=== PATIENT | male | born 1950 | race Caucasian/White ===

== ENCOUNTER 2023-05-16 08:04 | Outpatient (RCR) | payer MEDICARE, SELFPAY ==
--- NOTE | ~2023-05-16 | XR_ITS ---
EXAMINATION: XR FOOT, LEFT CLINICAL INFORMATION: Nonhealing wound left foot COMPARISON: None available. TECHNIQUE: AP, lateral, and oblique views of the left foot. FINDINGS: No acute fracture or dislocation. There is focal osteopenia and bone loss of the distal tuft of the great toe. There is adjacent soft tissue swelling and overlying surgical dressing. Appearance is concerning for osteomyelitis. There is irregular appearance to the medial side of the MTP joint of the fifth toe with focal osteopenia and cystic or erosive change of the fifth metatarsal head and periosteal and cortical thickening of the proximal phalanx. Appearance is questionable for septic arthritis. Question old trauma to the proximal phalanx of the fifth toe. There may be soft tissue swelling adjacent to the fifth MTP joint. No soft tissue foreign body. Calcaneal spurs. XR/XR foot LT min 3V IMPRESSION: Osteomyelitis of the distal tuft of the great toe. Question septic arthritis of the medial side of the fifth MTP joint. Findings will be communicated by the [place] work flow english professor.
== END 2023-07-05 16:05 | disposition home or self-care (01) ==
LOC: HO.WCC 08:04
PROVIDERS: PCP Internal Medicine; Visit Provider Physician Assistant
DX: E11.621 Type 2 diabetes mellitus with foot ulcer (principal); L97.522 Non-pressure chronic ulcer of other part of left foot with fat layer exposed; E11.69 Type 2 diabetes mellitus with other specified complication; M86.9 Osteomyelitis, unspecified; E11.40 Type 2 diabetes mellitus with diabetic neuropathy, unspecified; I10 Essential (primary) hypertension; L84 Corns and callosities; Z79.84 Long term (current) use of oral hypoglycemic drugs; Z87.891 Personal history of nicotine dependence
CPT/HCPCS: 11042; 73630

== ENCOUNTER 2023-05-31 15:38 | Outpatient (REF) | payer MEDICARE, SELFPAY | END 2023-05-31 15:39 | disposition home or self-care (01) | LOC: HO.LNP 15:38 | PROVIDERS: Visit Provider Physician Assistant | DX: S91.102A Unspecified open wound of left great toe without damage to nail, initial encounter (principal); X58.XXXA Exposure to other specified factors, initial encounter; Y93.9 Activity, unspecified; Y92.9 Unspecified place or not applicable; Y99.9 Unspecified external cause status | CPT/HCPCS: 87070; 87073; 87077; 87186; 87205 ==

== ENCOUNTER 2024-03-01 12:19 | Outpatient (RCR) | payer MEDICARE, SELFPAY | END 2024-08-24 14:02 | disposition home or self-care (01) | LOC: HO.WCC 12:19 | PROVIDERS: PCP Internal Medicine; Visit Provider Surgery | DX: E11.621 Type 2 diabetes mellitus with foot ulcer (principal); L97.522 Non-pressure chronic ulcer of other part of left foot with fat layer exposed; E11.40 Type 2 diabetes mellitus with diabetic neuropathy, unspecified; L84 Corns and callosities; Z87.891 Personal history of nicotine dependence; Z79.899 Other long term (current) drug therapy | CPT/HCPCS: 11042; 29445; 97597; 99212; 99213 ==